=== PATIENT | male | born 1990 | race African-American/Black ===

== ENCOUNTER 2020-06-24 01:28 | Emergency (ER) | payer OTHER ==
[~2020-06-24] VITALS: Ht 162.6 cm; Wt 63.5 kg
[~2020-06-24 01:28] MED LIST: AMOXICILLIN500 M1 PO; NAPROSYN500 MG PO; PERCOCET 5-3251 EACH PO; VICODIN 5-5001 EACH PO
[2020-06-24] MEDS ORDERED: AMOXICILLIN 50500 M1 PO (02:28)
[2020-06-24] MEDS ORDERED: NAPROSYN500 MG PO (02:28)
[2020-06-24 03:01] VITALS: BP 147/100
== END 2020-06-24 03:02 | disposition home or self-care (01) ==
LOC: ER 01:28
DX: R51 Headache (principal); K02.9 Dental caries, unspecified; Z79.899 Other long term (current) drug therapy

== ENCOUNTER 2020-06-27 01:19 | Emergency (ER) | payer OTHER ==
[~2020-06-27] VITALS: Ht 162.6 cm; Wt 63.5 kg
[~2020-06-27 01:19] MED LIST changes: +AMOXICILLIN 50500 M1 PO
[2020-06-27 04:03] VITALS: BP 132/88
--- NOTE | 2020-06-27 08:07 | EKG ---
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
== END 2020-06-27 04:04 | disposition home or self-care (01) ==
LOC: ER 01:19
DX: R07.89 Other chest pain (principal); F12.90 Cannabis use, unspecified, uncomplicated

== ENCOUNTER 2020-07-28 01:08 | Emergency (ER) | payer OTHER ==
[~2020-07-28] VITALS: Ht 165.1 cm; Wt 63.5 kg
[2020-07-28 01:09] VITALS: BP 141/93
[2020-07-28] MEDS ORDERED: ADVIL200 M3 PO (01:15)
== END 2020-07-28 02:00 | disposition home or self-care (01) ==
LOC: ER 01:08
DX: R51 Headache (principal); K08.89 Other specified disorders of teeth and supporting structures; Z79.899 Other long term (current) drug therapy

== ENCOUNTER 2021-05-15 18:13 | Emergency (ER) | payer OTHER ==
[~2021-05-15] VITALS: Ht 165.1 cm; Wt 68.0 kg
[~2021-05-15 18:13] MED LIST changes: +ADVIL200 M3 PO
[2021-05-15 19:18] LABS: ABSOLUTE NEUTROPHILS 3.7 thou/uL (1.4-8.2); BASOPHILS 0.9 % (0.0-2.0); HEMATOCRIT 55.3 % (42.0-52.0); HEMOGLOBIN 19.2 gm/dL (14.0-18.0); LYMPHOCYTES 28.7 % (24.0-44.0); MCH 33.2 pg (26.0-34.0); MCHC 34.7 g/dL (28.0-37.0); MCV 95.5 fL (80.0-100.0); MONOCYTES 11.9 % (1.0-8.0); PLATELET COUNT 268 thou/uL (150-400); POLYS 57.5 % (36.0-66.0); RBC 5.79 mil/uL (4.50-6.00); RDW 13.3 % (10.5-14.5); WBC 6.4 thou/uL (4.0-11.0)
[2021-05-15 19:26] LABS: ANION GAP 14 mmol/L (7-16); BUN 20 mg/dL (7-18); CALCIUM 10.2 mg/dL (8.5-10.1); CHLORIDE 98 mmol/L (98-107); CO2 25 mmol/L (21-32); CREATININE 2.6 mg/dL (0.7-1.3); GLUCOSE 133 mg/dL (74-106); POTASSIUM 3.7 mmol/L (3.5-5.1); SODIUM 137 mmol/L (136-145)
[2021-05-15 19:34] LABS: TROPONIN-I <0.06 ng/mL (<0.06)
[2021-05-15 22:13] LABS: CALCIUM 8.3 mg/dL (8.5-10.1); POTASSIUM 3.7 mmol/L (3.5-5.1)
[2021-05-15 23:17] VITALS: BP 116/69
--- NOTE | 2021-05-17 08:22 | EKG ---
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 05/17/21 [id number] Tani Santana MD, FACC /EPI
== END 2021-05-15 23:32 | disposition home or self-care (01) ==
LOC: ER 18:13
PROVIDERS: Nurse Practitioner
DX: R06.00 Dyspnea, unspecified (principal); R11.2 Nausea with vomiting, unspecified; R06.02 Shortness of breath; R20.2 Paresthesia of skin

== ENCOUNTER 2021-06-30 22:50 | Emergency (ER) | payer OTHER ==
[~2021-06-30] VITALS: Ht 162.6 cm; Wt 68.0 kg
[2021-07-01 00:54] VITALS: BP 122/75
== END 2021-07-01 00:57 | disposition home or self-care (01) ==
LOC: ER 22:50
DX: U07.1 COVID-19 (principal)

== ENCOUNTER 2021-07-05 17:53 | Emergency (ER) | payer OTHER ==
[~2021-07-05] VITALS: Ht 165.1 cm; Wt 68.0 kg
--- NOTE | ~2021-07-05 | EMS ---
[place] [address] EMS Patient Care Report Name: CARLYLE SORTO Room #: DEP VIC Goodman#: [id number] Admission: 07/05/21 Attend Phys: Discharge: 07/05/21 Date of : [birth year] Report #: [id number] THIS REPORT FOR: //name// Report Transmitted: 07/07/2021 13:12 EMS Care Summary [place], [place]/[facility] Incident [id number] @ 07/05/2021 17:11 Incident Location [address] [place] [address] Patient CARLYLE SORTO Male, 30 Years 1990 Patient Address [address] [place] [address] Patient History Novel Coronavirus (COVID-19), Patient Allergies No known allergies, Patient Medications None Reported, Chief Complaint COVID+ Disposition Transported No Lights/[place] Reason Breathing Problem Transported To [facility] Narrative PT FOUND WALKING OUT TO AMBULNCE A/O X3 C/O BEING COVID+ AND WANTING TO GO TO THE HOSP. PT C/O ALL OVER BODY ACHES[place] [address] EMS Patient Care Report Name: CARLYLE SORTO Room #: DEP ER Bessy.#: [id number] Admission: 07/05/21 Attend Phys: Discharge: 07/05/21 Date of : [birth year] Report #: [id number] Initial Vitals @17:32P: 101,R: 16,BP: 138/86,Pain: 2/10,GCS: 15,CO: 2,SpO2: 98,Revised Trauma: 12, @PTAP: 116,R: 18,BP: 107/73,Pain: 2/10,GCS: 15,Revised Trauma: 12, Assessments @17:34MENTAL:No Abnormalities,SKIN:No Abnormalities,HEENT:Head/Face: No Abnormalities,Eyes: No Abnormalities,Neck/Airway: No Abnormalities,LUNG SOUNDS:General: No Abnormalities,Left Upper: No Abnormalities,Right Upper: No Abnormalities,Left Lower: No Abnormalities,Right Lower: No Abnormalities,ABDOMEN:General: No Abnormalities,Left Upper: No Abnormalities,Right Upper: No Abnormalities,Left Lower: No Abnormalities,Right Lower: No Abnormalities,PELVIS//GI:No Abnormalities,EXTREMITIES:Left Arm: No Abnormalities,Right Arm: No Abnormalities,Left Leg: No Abnormalities,Right Leg: No Abnormalities,PULSE:NEURO:No Abnormalities, Impression COVID-19 - Confirmed by testing Procedures @17:34ALS AssessmentResponse: UnchangedSucceeded Timeline 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 It is designed to provide pertinent information for the following purposes: continuity of care, clinical quality, and state data reporting. The complete legal record is available to ED staff and administrators of the receiving hospital in [employer] Patient Tracker. All data is provided "as is."
[2021-07-05 17:55] VITALS: BP 126/83
== END 2021-07-05 19:50 | disposition home or self-care (01) ==
LOC: ER 17:53
DX: U07.1 COVID-19 (principal)

== ENCOUNTER → 2021-07-05 | Emergency (ER) | payer OTHER ==
[~2021-07-05] VITALS: Ht 165.1 cm; Wt 62.6 kg
[2021-07-05 18:50] VITALS: BP 103/70
== END ==
LOC: ER 18:49
DX: R06.02 Shortness of breath (principal); Z53.21 Procedure and treatment not carried out due to patient leaving prior to being seen by health care provider